=== PATIENT | female | born 1980 | race Caucasian/White ===

== ENCOUNTER 2018-06-15 08:32 | Emergency (ER) | payer MEDICARE ==
[~2018-06-15] VITALS: Ht 160 cm; Wt 68.0 kg
[2018-06-15 08:45] VITALS: BP_SYST 103
[2018-06-15] MEDS ORDERED: IBUPROFEN 800 MG TABLET PO ONE (09:45)
[2018-06-15 10:05] VITALS: BP_SYST 103
== END 2018-06-15 10:05 | disposition home or self-care (01) ==
LOC: SED 08:32
DX: S83.92XA Sprain of unspecified site of left knee, initial encounter (principal); J45.909 Unspecified asthma, uncomplicated; W01.0XXA Fall on same level from slipping, tripping and stumbling without subsequent striking against object, initial encounter; Y93.89 Activity, other specified; Y92.89 Other specified places as the place of occurrence of the external cause; Y99.8 Other external cause status
CPT/HCPCS: 73564; 99284

== ENCOUNTER 2021-06-09 22:24 | Emergency (ER) | payer BC, MEDICARE ==
[~2021-06-09] VITALS: Ht 160 cm; Wt 68.0 kg
[2021-06-09 22:30] VITALS: BP_SYST 152
--- NOTE | 2021-06-09 22:30 | NUR ---
Patient triaged and placed in waiting room. VSS and patient appears in no acute distress at this time. Accompanied by her daugthers, awaiting available bed, and MD notified of need for MSE.
--- NOTE | 2021-06-10 01:34 | NUR ---
ER examining patient in the .
[2021-06-10] MEDS ORDERED: IBUPROFEN 600 MG TABLET PO ONE (01:45)
[2021-06-10] MEDS ORDERED: IBUP-1969 PO (02:10)
--- NOTE | 2021-06-10 02:31 | NUR ---
Note undone in EDM - 06/10/21 at 0231 by [email or web address] Patient given written and verbal discharge instructions and verbalizes understanding. ER discussed with patient the results and treatment provided. Patient in stable condition. ID arm band removed. No Rx of given. Patient educated on pain management and to follow up with PMD. Pain Scale 0/10. Opportunity for questions provided and answered. Medication side effect fact sheet provided.
--- NOTE | 2021-06-10 02:34 | NUR ---
Patient given written and verbal discharge instructions and verbalizes understanding. ER MD discussed with patient the results and treatment provided. Patient in stable condition. ID arm band removed. No Rx of given. Patient educated on pain management and to follow up with PMD. Pain Scale 0/10. Opportunity for questions provided and answered. Medication side effect fact sheet provided.
[2021-06-10 02:37] VITALS: BP_SYST 135
== END 2021-06-10 02:37 | disposition home or self-care (01) ==
LOC: SED 22:24
DX: S46.312A Strain of muscle, fascia and tendon of triceps, left arm, initial encounter (principal); G56.22 Lesion of ulnar nerve, left upper limb; J45.909 Unspecified asthma, uncomplicated; W18.39XA Other fall on same level, initial encounter; Y93.89 Activity, other specified; Y92.89 Other specified places as the place of occurrence of the external cause; Y99.8 Other external cause status
CPT/HCPCS: 99283

== ENCOUNTER 2023-06-08 16:50 | Emergency (ER) | payer BC ==
[~2023-06-08] VITALS: Ht 160 cm; Wt 99.3 kg
[2023-06-08 16:50] VITALS: BP_SYST 135; PULSE 89; RESP 18; TEMP 97.6; O2SAT 97
[~2023-06-08 16:50] MED LIST: IBUP-1969 PO
[2023-06-08 20:14] LABS: SERUM HCG (QUALITATIVE) NEGATIVE (NEGATIVE)
[2023-06-08 21:05] VITALS: BP_SYST 135; PULSE 72; RESP 16; TEMP 98; O2SAT 97
== END 2023-06-08 20:52 | disposition home or self-care (01) ==
LOC: SED 16:50
DX: N92.6 Irregular menstruation, unspecified (principal); Z79.899 Other long term (current) drug therapy
CPT/HCPCS: 36415; 81025; 84703; 99283

== ENCOUNTER 2024-04-19 18:18 | Emergency (ER) | payer BC ==
[~2024-04-19] VITALS: Ht 160 cm; Wt 99.8 kg
[2024-04-19 18:27] VITALS: BP_SYST 127; PULSE 85; RESP 22; TEMP 98.3; O2SAT 98
[2024-04-19] MEDS ORDERED: NAPR-688 PO (19:29)
[2024-04-19 19:32] VITALS: BP_SYST 127; PULSE 85; RESP 22; TEMP 98.3; O2SAT 98
== END 2024-04-19 19:32 | disposition home or self-care (01) ==
LOC: SED 18:18
DX: S50.12XA Contusion of left forearm, initial encounter (principal); Z90.49 Acquired absence of other specified parts of digestive tract; Z79.899 Other long term (current) drug therapy; W01.0XXA Fall on same level from slipping, tripping and stumbling without subsequent striking against object, initial encounter; Y93.89 Activity, other specified; Y92.89 Other specified places as the place of occurrence of the external cause; Y99.8 Other external cause status
CPT/HCPCS: 73090; 99283